=== PATIENT | female | born 1950 | race Caucasian/White ===

== ENCOUNTER 2022-11-27 13:19 | Outpatient (CLI) | payer MEDICARE, SELFPAY ==
--- NOTE | ~2022-11-27 | CT_ITS ---
Non-contrast CT scan of the Abdomen and Pelvis Clinical indication: Left ureteral stone Technique: 2.5 mm axial scans were obtained through the abdomen and pelvis without intravenous or or al contrast. Dose reduction technique was used on this scan by utilizing automated exposure control a nd iterative reconstruction technique. The dose-length product (DLP) was 256.57 mGy-cm. COMPARISON: 05/26/2022 Findings: Images through the lung bases reveal right basilar pulmonary scarring. There are bilateral nonobstructing renal stones, measuring up to 5 mm in diameter. No hydronephrosis. No definite ureteral stones seen, though the distal ureters are obscured by streak artifact from josefina ateral hip arthroplasty. The liver, spleen, pancreas, gallbladder, and adrenals appear normal. There are atherosclerotic calci fications of the aorta. There is no evidence of bowel obstruction. Normal appendix. Visualized urinary bladder unremarkable. No definite pelvic mass or ascites seen. There are mild comp ression deformities of T12, L2, and L3. Impression: Bilateral nonobstructing renal stones, as detailed above. No definite ureteral stone or hydronephrosi s seen. Distal ureters are obscured by streak artifact from bilateral hip arthroplasty. Mild compression deformity is T12, L2, and L3. Reviewed, dictated and finalized at location . Impression: Bilateral nonobstructing renal stones, as detailed above. No definite ureteral stone or hydronephrosis seen. Distal ureters are obscured by streak artifact fr om bilateral hip arthroplasty. Mild compression deformity is T12, L2, and L3.
--- NOTE | ~2022-11-27 | XR_ITS ---
EXAM: XR abdomen/kub 1V DATE: 11/27/2022 14:13 HISTORY: LEFT URETERAL STONE . COMPARISON: CT abdomen and pelvis 11/27/2022; CT cap 05/26/2022. FINDINGS: Clear lung bases. Surgical clips over the left hemidiaphragm. Vertebroplasty cement at L1. Diffuse osteopenia. Partially visualized bilateral hip arthroplasty hardware. Normal bowel gas patte rn. No organomegaly. Pelvic phleboliths. 3 mm calcification projecting over the right renal shadow. 4 mm calcification and additional punctate calcifications projecting over the left renal shadow. 6 mm calcification projecting within the pelvic ring. IMPRESSION: 6 mm calcification projecting within the left pelvic ring, possible distal left ureteral stone. Bilateral nephrolithiasis. Reviewed, dictated and finalized at location K.
== END 2022-11-27 13:20 | disposition home or self-care (01) ==
LOC: ANHIMG 13:30
PROVIDERS: PCP Family Medicine; Visit Provider Urology
DX: N20.1 Calculus of ureter (principal); N20.0 Calculus of kidney; M53.86 Other specified dorsopathies, lumbar region
CPT/HCPCS: 74018; 74176